=== PATIENT | male | born 1995 | race African-American/Black ===

== ENCOUNTER 2018-06-22 19:27 | Emergency (ER) | payer MEDICAID, OTHER ==
[~2018-06-22] VITALS: Ht 177.8 cm; Wt 75.0 kg
[2018-06-22 19:53] VITALS: BP 125/53
== END 2018-06-23 02:34 | disposition home or self-care (01) ==
LOC: ER 19:27
DX: R05 Cough (principal); R51 Headache; R68.83 Chills (without fever)
CPT/HCPCS: 71045; 99283